=== PATIENT | female | born 1995 ===

== ENCOUNTER 2016-09-12 18:48 | Inpatient (IN) | payer MEDICAID, SELFPAY ==
[2016-09-12 19:09] VITALS: BMI 29.7
[2016-09-12] MEDS ORDERED: Lactated Ringer's 1,000 ML IV SCH (20:29)
--- NOTE | 2016-09-12 22:22 | OBHP ---
Datetime: 09/12/2016 20:00 IP Adm Impression: Term, intrauterine IP Admit Plan: Admit to unit Admit Comment, IP Provider: 20 yo , at 38 weeks GA by LMP with PHILIPPE: 09/26/2016 presents to O BED for IOL. Patient had growth US today in our clinic that showed FL _ HUM < 1st percentil. However BPP and ANDRES normal.EFW: 6lb 11 OZ. IOL was decided. Patient denies uterine Ctx, LOF, VB, fever, dysu philippe, vaginal discharge. She reports + FM. in [facility]. Resident who f/u patient Dr Penny. POBHx: x 1 full term, normal weight. miscarriage 1st T x 1. anemia current , vit D d efficiency PGynHx: none PMhx: none Allergies: NKDA Meds: PNV, ferrous sulfate 1 PO BID PSurgHx:left forearm fracture PShx: No ETOH, rect drugs, cig GBS: neg ABO-Rh: O+ Antibody: neg RPR: neg HIV: neg HBsAg: neg Rubella: no immune GC/C: neg PPD: neg TDap: placed Flu: declined Assessesment/Plan: 20 yo , at 38 weeks GA. IOL -Admit L _ D -IV fluids -Cbc, TYpe screen -enema soap and water. Rohit Ramires PGY1 Review of systems patient denies headache chest pain shortness of breath palpitations constipation dysuria vaginal bleeding. Cold intolerance easy bruisability musculoskeletal or neurological complai nts Patient was seen and examined with the resident I agree with note. Patient was referred to labor a nd delivery by maternal- medicine from induction of labor. The patient was given the opportunity to ask questions and questions answered we discussed the plan of care with patient and family Pelvic Type - PN: Adequate Extremities - PN: Normal Abdomen - PN: Normal Back - PN: Normal Breast - PN: Normal Lungs - PN: Normal Heart - PN: Normal Thyroid - PN: Normal Neurologic - PN: Normal HEENT - PN: Normal General - PN: Normal FHR - Baseline A Provider: 140 Membranes, Provider: Intact Contraction Comments Provider: irreg q5min Comments, ACOG Physical Exam: Us bedside: vertex Vital Signs Provider: Reviewed; Within Normal Limits IP Chief Complaint: Scheduled induction of labor NICHD Variability Prov Fetus A: Moderate 6-25bpm NICHD Accel Fetus A IP Provider: [id number] FHR Category Provider Fetus A: Category I NICHD Decel Fetus A IP Provider: None Dilatation, Provider: 1cm Effacement, Provider: long Station, Provider: -2 Genitourinary Exam: Normal DTRs - PN: Normal
[2016-09-12 23:06] LABS: BASO % 0.4 % (0.0-2.0); EOS # 0.1 K/uL (0.0-0.7); EOS % 0.5 % (0.0-4.0); HEMATOCRIT 30.7 % (34.0-47.0); LYMPH # 2.3 K/uL (1.0-4.3); LYMPH % 21.3 % (20.0-40.0); MEAN CELL VOLUME 80.6 fl (81.0-99.0); MEAN CORPUSCULAR HEMOGLOBIN 26.3 pg (27.0-31.0); MEAN CORPUSCULAR HGB CONC 32.6 g/dL (33.0-37.0); MONO # 0.6 K/uL (0.0-0.8); MONO % 5.5 % (0.0-10.0); NEUT # 7.9 K/uL (1.8-7.0); NEUT % 72.3 % (50.0-75.0); NRBC % 0.1 % (0.0-0.0); RED CELL DISTRIBUTION WIDTH 14.6 % (11.5-14.5); WHITE BLOOD COUNT 10.9 K/uL (4.8-10.8)
[2016-09-13] MEDS ORDERED: Nalbuphine 20 mg/ml Inj (1 ml) IVP PRN (00:19)
[2016-09-13] MEDS ORDERED: Nalbuphine 20 mg/ml Inj (10 ml) IVP PRN (00:45)
[2016-09-13 02:23] VITALS: BP 105/58; PULSE 93; RESP 16; TEMP 99; O2SAT 95
[2016-09-13] MEDS ORDERED: Oxytocin 10 Units/ml Inj ONE (12:00)
[2016-09-13] MEDS ORDERED: Oxytocin 30 units/LR 500ML 30 U/500 ML BAG IV ONE (12:01)
[2016-09-13] MEDS ORDERED: Oxytocin 30 units/LR 500ML 30 U/500 ML BAG IV SCH ×2 (12:44→23:57)
[2016-09-13] MEDS ORDERED: Lactated Ringer's 1,000 ML IV SCH (23:00)
[2016-09-13] MEDS ORDERED: Lidocaine 1% Inj (20ml) ONE (23:33)
[2016-09-13] MEDS ORDERED: Oxycodone/Acetaminophen 5/325 mg Tab PO PRN (23:57)
[2016-09-13] MEDS ORDERED: Benzocaine/Menthol SPRAY TOP PRN (23:57)
--- NOTE | 2016-09-14 00:06 | OBDS ---
MATERNAL INFORMATION Provider Comments: AP Dx: 38.2wk induction for IUGR PP Dx: same Procedure: ; cord blood collected; plac delivered spont and intact; repair of 2nd deg lacer. OB: orossetos Anesth: 1%local lidocaine ebl 300cc pt remained in br with . no complications LABOR SUMMARY EDC: 09/26/2016 00:00 No. Babies in Womb: 1 LABOR INFORMATION Cervical Ripening Agents: Cervidil VAGINAL DELIVERY Laceration Extension: N/A Laceration Type: Vaginal Laceration Repair: Yes Laceration Repair Note: repaired with 3-0 vicryl Sharps Count Correct: Yes Count Comment: 10 sponges _ 5 laps PRESENTATION/POSITION BABY A Presentation: Cephalic PLACENTA INFORMATION BABY A Placenta Method of Delivery: Spontaneous Placenta Status: Delivered
[2016-09-14] MEDS ORDERED: Oxytocin 30 units/LR 500ML 30 U/500 ML BAG IV SCH (02:06)
[2016-09-14] MEDS ORDERED: Oxycodone/Acetaminophen 5/325 mg Tab PO PRN (02:06)
[2016-09-14 07:34] LABS: HEMATOCRIT 29.3 % (34.0-47.0); MEAN CELL VOLUME 80.5 fl (81.0-99.0); MEAN CORPUSCULAR HEMOGLOBIN 26.5 pg (27.0-31.0); RED CELL DISTRIBUTION WIDTH 14.7 % (11.5-14.5); WHITE BLOOD COUNT 14.8 K/uL (4.8-10.8)
[2016-09-14] MEDS: Multivitamin With Minerals Tab PO SCH (08:08)
[2016-09-14] MEDS: Benzocaine/Menthol SPRAY TOP PRN (08:08)
[2016-09-14] MEDS ORDERED: Multivitamin With Minerals Tab PO SCH (09:00)
--- NOTE | 2016-09-14 10:31 | OBPPN ---
Datetime: 09/14/2016 09:40 PP Pain Prov: Within normal limits PP Nausea Prov: Denies PP Flatus Prov: Yes PP BM Prov: No PP Heart Prov: Normal PP Lungs Prov: Normal PP Abdomen/Uterus Prov: Normal PP Lochia Prov: Normal PP Comments Phys Exam Prov: lochia = menses PP Progress Note Prov: PPD 1 Patient doing well. She is tolerating regular diet. She denies nausea and vomiting, passing flatus , has not had BM. Denies dizziness, palpiations, shortness of breath. A: PPD1 s/p with normal post progression. P:Pain control, encouraged breast feeding Encouraged ambulation Garrett PGY1 The patient was seen with the resident and I agree with the notes analgesia as needed encourage am bulation and anticipate discharge in morning Vital Signs Provider PP: Reviewed
[2016-09-15] MEDS ORDERED: Measles, Mumps, and Rubella 0.5 ML VIAL SC ONE (09:21)
[2016-09-15] MEDS: Multivitamin With Minerals Tab PO SCH (10:35)
[2016-09-15] MEDS: Benzocaine/Menthol SPRAY TOP PRN (10:35)
--- NOTE | 2016-09-15 11:19 | OBPPN ---
Datetime: 09/15/2016 06:36 PP Pain Prov: Within normal limits PP Nausea Prov: Denies PP Flatus Prov: Yes PP BM Prov: No PP Breasts Prov: Normal PP Heart Prov: Normal PP Lungs Prov: Normal PP Abdomen/Uterus Prov: Normal PP Lochia Prov: Normal PP Vulva/Perineum Prov: Normal PP Extremities Prov: Normal PP C/S Incision Prov: Not Applicable PP Progress Prov: Abnormal PP Comments Phys Exam Prov: Fundus: Firm and below umbilcus : Baby having trouble latching on PP Impression Prov: Normal progression PP Plan Prov: Continue present management PP Progress Note Prov: Patient is seen on PPD 2 and doing well. She is tolerating regular diet. She denies nausea and vom iting, passing flatus, has not had BM. Baby has trouble latching on, consult had been place d but have not yet [facility]. Denies dizziness, palpiations, shortness of breath. A: PPD2 s/p with normal post progression. P: -Pain control, encouraged breast feeding - Encouraged ambulation -F/U w/ consult bbefore discharge Stable for discharge home today: Will given script for iron and pain medication. Patience Solomon PGY-1 [facility] ADDENDUM: pt seen _ examined by me. agree w/ above asssessment and plan. s: pt denies perineal pain but c/o intermittent painful cramps desires rx for. p: d/c home on [id number] x1mo, senokot s prn _ motrin prn crmps IP PP Procedures: None Vital Signs Provider PP: Reviewed; Within Normal Limits
--- NOTE | 2016-09-15 11:21 | OBDCSUM ---
Datetime: 09/15/2016 06:47 Discharged to, Provider: Home Follow up at, Provider: Dr. Cutler Disch Instr Activity: Normal activity Disch Instr Diet: Regular Discharge Instructions, Provider: Routine instructions given Discharge Diagnosis, Provider: Term Delivered Discharge Time: 09/15/2016 09:00 Follow up in weeks, Provider: 6 weeks Disch Referrals: None Disch Activity Restrictions: No sexual activity; Nothing in vagina - [place], tampons, douche Discharge Comment, Provider: 20 y/o A1 @ 38 wks had a Delivered baby girl on 09/13/16 @ 23:31 2825g , : 9,9 Patient doing well, stable for discharge. Prescription given for pain Encourage PNV 1 tab PO once daily Iron supplementation Ibuprofen 600 mg 1 tab PO Q6h prn for mild to moderate pain Ambulate w/ caution, nothing in vagina, no heavy lifting, if excessive bleeding or fever without r elief from Ibuprofen go to ED F/U with [facility] in 6 weeks and 2-3 days for infant with stave mill hand. Patience Solomon MD [employer]per PGY1 obh addendum: rx senokot s prn constipation Contraception after Delivery: Undecided
== END 2016-09-15 14:20 | disposition home or self-care (01) | DRG 775 ==
LOC: H.EROB2 18:48 → H.L&D 20:29 → H.OB/GYN 09-14 07:00
PROVIDERS: ADMIT Obstetrics & Gynecology Gynecology; ATTEND Obstetrics & Gynecology Gynecology
PROC: 4A1HXCZ Monitoring of Products of Conception, Cardiac Rate, External Approach (ICD-10-PCS; 2016-09-12)
PROC: 10E0XZZ Delivery of Products of Conception, External Approach (ICD-10-PCS; principal; 2016-09-14)
PROC: 0UQGXZZ Repair Vagina, External Approach (ICD-10-PCS; 2016-09-14)
DX: O36.5930 Maternal care for other known or suspected poor fetal growth, third trimester, not applicable or unspecified (principal); O71.4 Obstetric high vaginal laceration alone; O99.02 Anemia complicating childbirth; D53.8 Other specified nutritional anemias; Z3A.38 38 weeks gestation of pregnancy; Z37.0 Single live birth